=== PATIENT | female | born 1985 | race Caucasian/White ===

== ENCOUNTER 2023-11-13 06:07 | Day surgery (SDC) | payer BC, OTHER ==
[2023-11-13] MEDS ORDERED: Midazolam 1 MG/ML 2 ML SDV IV ONE (06:08)
[2023-11-13] MEDS ORDERED: fentaNYL 100 MCG/2 ML SDV IV ONE (06:08)
[2023-11-13] MEDS ORDERED: Midazolam 1 MG/ML 2 ML SDV ONE (06:17)
[2023-11-13] MEDS ORDERED: fentaNYL 100 MCG/2 ML SDV ONE (06:17)
[2023-11-13] MEDS: Dextrose 5%-0.45% NaCl 1,000 ML IV SCH (07:03)
[2023-11-13] MEDS: fentaNYL 100 MCG/2 ML SDV IV ONE ×6 (07:08→07:19)
[2023-11-13] MEDS: Midazolam 1 MG/ML 2 ML SDV IV ONE ×9 (07:09→07:24)
[2023-11-13 08:34] VITALS: BP 84/52; PULSE 74
== END 2023-11-13 08:54 | disposition home or self-care (01) ==
LOC: DL.ENDO 06:07
PROVIDERS: ATTEND Internal Medicine Gastroenterology
DX: R19.4 Change in bowel habit (principal); R10.9 Unspecified abdominal pain
CPT/HCPCS: J2250; J3010; J7799